=== PATIENT | male | born 1950 | race Caucasian/White ===

== ENCOUNTER → 2019-01-15 | Outpatient (CLI) | payer OTHER ==
--- NOTE | 2019-01-16 13:37 | RAD ---
MR#: [id number] Date of Study: 01/15/2019 Ordering Physician: BRAEDEN SMITH, Referring Physician: BRAEDEN SMITH, Tech: ZAK Gee, RDMS, RTR APPROVED REPORT Patient Location : OUT-PATIENT Indications Lower Extremity Pain : Varicose Veins Past History Compression Stockings : Findings Grayscale images of the bilateral saphenofemoral junctions do not reveal any evidence of thrombus The right great saphenous vein measures approximately 5.6 mm. There is significant reflux noted in th is vessel at 2.2 seconds. There is also a associated prepared foods associate in the mid thigh which is proximally 6.2 mm in diameter and this also demonstrates reflux of greater than one second. The left greater saphenous vein has been previously removed for prior bypass surgery The bilateral lesser saphenous veins do not reveal any obvious evidence of reflux. Critical Notification Critical Value: No <Conclusion> Positive for reflux in the right greater saphenous vein with an associated prepared foods associate as noted above Signed by : Vamsi Moore, Electronically Approved : 01/16/2019 13:36:26
== END | disposition home or self-care (01) ==
LOC: US 12:32
PROVIDERS: ATTEND Nurse Practitioner
DX: I83.93 Asymptomatic varicose veins of bilateral lower extremities (principal); M79.604 Pain in right leg; M79.605 Pain in left leg; R60.0 Localized edema
CPT/HCPCS: 93970

== ENCOUNTER → 2019-03-02 | Outpatient (CLI) | payer OTHER ==
--- NOTE | 2019-03-02 15:05 | CARD ---
MR#: [id number] Date of Study: 03/02/2019 Ordering Physician: RAMO AGUILAR, Referring Physician: RAMO AGUILAR, Tech: Marline Mcfadden RVT; Joey MONTOYA LP APPROVED REPORT Patient StatusOUT-PATIENT Binding Nicker: Marline Mcfadden RVT; Joey GAMA; FAWN Procedure(s) performed: Endovenous Vena Seal ablation of the Right greater saphenous vein. INDICATION FOR PROCEDURE The indication(s) include : Symptomatic Chronic Venous Insufficiency with inflammation and Varicose V eins, lower extremity pain and edema. PROCEDURE NARRATIVE After explaining the risks, benefits and alternative options, informed consent was obtained from willem ent. Patient was brought to the procedure suite and duplex ultrasound was used to map out the insuffi cient saphenous vein. The access site was determined and marked on the overlying skin. The depth and diameter of the vein (s) to be treated was documented. The patient was placed supine on the procedure table and the leg was prepped and draped using sterile technique. Ultrasound guidance was again used to localize the access site. 1% lidocaine was injected into the sk in and subcutaneous tissues for local anesthesia. Using ultrasound guidance, access was obtained in t he saphenous vein with a 19-gauge thin-walled needle followed by introduction of a short guidewire. T he intraluminal location was confirmed with ultrasound and a 7 Polish 7 cm sheath was inserted into t he vein. A 0.035 inch guidewire from the Venaseal kit was then introduced and positioned at the saphe nofemoral junction using ultrasound guidance. The 80 cm 7 Polish introducer sheath/dilator was positi oned 5 cm from the saphenofemoral junction. The guidewire and dilator were removed and the remaining sheath was flushed with sterile saline, with the syringe remaining in place prior to the next steps. The Cyanoacrylate adhesive was loaded into a 3 cc syringe that was then attached to the 5F delivery c athter and loaded on to the Dispenser gun.The catheter was primed precisely and this 'assembly' was i ntroduced through the 7 Polish sheath and positioned 5 cm caudal to the saphenofemoral junction under ultrasound guidance. While applying compression cephalad to the cathter tip with the ultrasound gonzalez sducer, 0.10 cc of the VenaSeal adhesive was delivered into the vein by pulling the trigger of the [employer] jaren gun. The catheter was pulled back 1 cm and another 0.10 cc of the adhesive was delivered foll owing which the catheter was pulled back 3 cm. Compression was applied over the vein for 3 minutes. T he catheter tip position was confirmed again using the ultrasound, 0.10 cc Venaseal adhesive delivere d, catheter pulled back 3 cm and compression applied for 30 seconds. These steps were repeated to tr eat the entire length of the incompetent vein. Following the last injection and compression sequence, the catheter and introducer sheath were pulled out from the access site. Hemostasis was achieved with manual compression and an adhesive bandage wa s applied to the incision. Ultrasound confirmed complete coaptation and closure of the treated segmen ts of the greater saphenous vein, and the absence of any DVT at the saphenofemoral junction. Treatmen t length was 68 cm. The drapes were removed and the patient cleaned and prepared for discharge. Patient tolerated the pro cedure well. There were no immediate complications. Postop ultrasound check scheduled for 48-72 hours and the patient was given written postop instructions. Signed by : Ramo Aguilar, Electronically Approved : 03/02/2019 15:05:22
== END ==
LOC: VNUS 13:43
PROVIDERS: ATTEND Internal Medicine Cardiovascular Disease
DX: I83.11 Varicose veins of right lower extremity with inflammation (principal)
CPT/HCPCS: 36482